=== PATIENT | male | born 2000 | race Caucasian/White ===

== ENCOUNTER 2024-05-16 07:10 | Emergency (ER) | payer SELFPAY ==
[~2024-05-16] VITALS: Ht 175.3 cm; Wt 66.0 kg
[2024-05-16 07:14] VITALS: O2SAT 100
[2024-05-16 07:31] VITALS: BP 153/93; PULSE 94; RESP 16; O2SAT 99
[2024-05-16] MEDS ORDERED: TOPUD PO (09:04)
[2024-05-16 09:37] VITALS: TEMP 98.3
[2024-05-16] MEDS: ACETAMINOPHEN 325MG TABLET PO ONE (09:37)
== END 2024-05-16 09:38 | disposition home or self-care (01) ==
LOC: ER 07:10
DX: R07.89 Other chest pain (principal); M79.10 Myalgia, unspecified site
CPT/HCPCS: 71045; 99283